=== PATIENT | male | born 1950 | race Caucasian/White ===

== ENCOUNTER 2019-06-12 00:21 | Day surgery (SDC) | payer MEDICARE | END 2019-06-12 12:00 | disposition home or self-care (01) | LOC: WOUND 00:21 | DX: E11.621 Type 2 diabetes mellitus with foot ulcer (principal); E11.40 Type 2 diabetes mellitus with diabetic neuropathy, unspecified; L97.519 Non-pressure chronic ulcer of other part of right foot with unspecified severity; I10 Essential (primary) hypertension; E11.59 Type 2 diabetes mellitus with other circulatory complications | CPT/HCPCS: G0463 ==

== ENCOUNTER 2019-06-19 00:21 | Day surgery (SDC) | payer MEDICARE | END 2019-06-19 22:48 | disposition home or self-care (01) | LOC: WOUND 00:21 | DX: E11.621 Type 2 diabetes mellitus with foot ulcer (principal); L97.511 Non-pressure chronic ulcer of other part of right foot limited to breakdown of skin; E11.59 Type 2 diabetes mellitus with other circulatory complications; G47.30 Sleep apnea, unspecified; E11.40 Type 2 diabetes mellitus with diabetic neuropathy, unspecified; M10.9 Gout, unspecified ==

== ENCOUNTER 2019-06-26 01:29 | Day surgery (SDC) | payer MEDICARE | END 2019-06-26 22:35 | disposition home or self-care (01) | LOC: WOUND 01:29 | DX: E11.621 Type 2 diabetes mellitus with foot ulcer (principal); E11.59 Type 2 diabetes mellitus with other circulatory complications; E11.40 Type 2 diabetes mellitus with diabetic neuropathy, unspecified; I10 Essential (primary) hypertension; L97.519 Non-pressure chronic ulcer of other part of right foot with unspecified severity ==

== ENCOUNTER 2019-07-03 00:42 | Day surgery (SDC) | payer MEDICARE | END 2019-07-03 22:37 | disposition home or self-care (01) | LOC: WOUND 00:42 | DX: E11.621 Type 2 diabetes mellitus with foot ulcer (principal); L97.512 Non-pressure chronic ulcer of other part of right foot with fat layer exposed; L97.519 Non-pressure chronic ulcer of other part of right foot with unspecified severity; E11.40 Type 2 diabetes mellitus with diabetic neuropathy, unspecified; I10 Essential (primary) hypertension ==

== ENCOUNTER 2019-07-10 00:12 | Day surgery (SDC) | payer MEDICARE | END 2019-07-10 23:02 | disposition home or self-care (01) | LOC: WOUND 00:12 | DX: E11.621 Type 2 diabetes mellitus with foot ulcer (principal); L97.519 Non-pressure chronic ulcer of other part of right foot with unspecified severity; E11.59 Type 2 diabetes mellitus with other circulatory complications; I10 Essential (primary) hypertension; G47.30 Sleep apnea, unspecified; M10.9 Gout, unspecified; E11.40 Type 2 diabetes mellitus with diabetic neuropathy, unspecified ==

== ENCOUNTER 2019-07-17 01:16 | Day surgery (SDC) | payer MEDICARE | END 2019-07-17 22:47 | disposition home or self-care (01) | LOC: WOUND 01:16 | DX: E11.621 Type 2 diabetes mellitus with foot ulcer (principal); L97.519 Non-pressure chronic ulcer of other part of right foot with unspecified severity; E11.59 Type 2 diabetes mellitus with other circulatory complications; I10 Essential (primary) hypertension; E11.40 Type 2 diabetes mellitus with diabetic neuropathy, unspecified ==

== ENCOUNTER 2019-07-24 00:14 | Day surgery (SDC) | payer MEDICARE | END 2019-07-24 22:37 | disposition home or self-care (01) | LOC: WOUND 00:14 | DX: E11.621 Type 2 diabetes mellitus with foot ulcer (principal); L97.412 Non-pressure chronic ulcer of right heel and midfoot with fat layer exposed; E11.40 Type 2 diabetes mellitus with diabetic neuropathy, unspecified; E11.59 Type 2 diabetes mellitus with other circulatory complications; I10 Essential (primary) hypertension; G47.30 Sleep apnea, unspecified; M10.9 Gout, unspecified ==

== ENCOUNTER 2019-07-31 00:12 | Day surgery (SDC) | payer MEDICARE | END 2019-07-31 22:55 | disposition home or self-care (01) | LOC: WOUND 00:12 | DX: E11.621 Type 2 diabetes mellitus with foot ulcer (principal); L97.512 Non-pressure chronic ulcer of other part of right foot with fat layer exposed; I10 Essential (primary) hypertension; G47.30 Sleep apnea, unspecified; M10.9 Gout, unspecified; E11.40 Type 2 diabetes mellitus with diabetic neuropathy, unspecified; E11.59 Type 2 diabetes mellitus with other circulatory complications ==

== ENCOUNTER 2019-08-07 00:25 | Day surgery (SDC) | payer MEDICARE | END 2019-08-07 22:36 | disposition home or self-care (01) | LOC: WOUND 00:25 | DX: E11.621 Type 2 diabetes mellitus with foot ulcer (principal); L97.512 Non-pressure chronic ulcer of other part of right foot with fat layer exposed; E11.59 Type 2 diabetes mellitus with other circulatory complications; E11.40 Type 2 diabetes mellitus with diabetic neuropathy, unspecified; I10 Essential (primary) hypertension ==

== ENCOUNTER 2019-08-14 01:10 | Day surgery (SDC) | payer MEDICARE | END 2019-08-14 22:40 | disposition home or self-care (01) | LOC: WOUND 01:10 | DX: E11.621 Type 2 diabetes mellitus with foot ulcer (principal); L97.512 Non-pressure chronic ulcer of other part of right foot with fat layer exposed; E11.59 Type 2 diabetes mellitus with other circulatory complications; E11.40 Type 2 diabetes mellitus with diabetic neuropathy, unspecified; I10 Essential (primary) hypertension; G47.30 Sleep apnea, unspecified; M10.9 Gout, unspecified | CPT/HCPCS: G0463 ==

== ENCOUNTER 2019-08-23 00:22 | Day surgery (SDC) | payer MEDICARE | END 2019-08-23 22:40 | disposition home or self-care (01) | LOC: WOUND 00:22 | DX: E11.621 Type 2 diabetes mellitus with foot ulcer (principal); L97.512 Non-pressure chronic ulcer of other part of right foot with fat layer exposed; E11.59 Type 2 diabetes mellitus with other circulatory complications; E11.40 Type 2 diabetes mellitus with diabetic neuropathy, unspecified; I10 Essential (primary) hypertension | CPT/HCPCS: G0463 ==

== ENCOUNTER 2019-09-04 00:37 | Day surgery (SDC) | payer MEDICARE | END 2019-09-04 22:35 | disposition home or self-care (01) | LOC: WOUND 00:37 | DX: E11.621 Type 2 diabetes mellitus with foot ulcer (principal); L97.512 Non-pressure chronic ulcer of other part of right foot with fat layer exposed; S91.104A Unspecified open wound of right lesser toe(s) without damage to nail, initial encounter; E11.59 Type 2 diabetes mellitus with other circulatory complications; E11.40 Type 2 diabetes mellitus with diabetic neuropathy, unspecified; I10 Essential (primary) hypertension ==

== ENCOUNTER 2021-01-20 04:01 | Day surgery (SDC) | payer MEDICARE ==
[~2021-01-20 04:01] MED LIST: ALLOPURINOL100 M1 PO; ASPI81CH PO; ATOR10 PO; Acetaminophen650 M1 PO; CARVEDILOL PO; CEFP200 PO; CYCL10 PO; FUROSEMIDE40 MG PO; GLIMEPIRIDE2 M2 PO; HYDRA25 PO; LIDOCAINE1 EAC1 TOP; MELATONIN10 M3 PO; METFORMIN HCL1000 M8 PO; METO2.5 PO; NEURONTIN300 MG PO; Norco 10-325 T1 EACH PO; ONDA4ODT MM; PANTOPRAZOLE SO40 M2 PO; Prinivil10 MG PO; SITA50T2 PO; VERAPAMIL PO
== END 2021-01-20 12:00 | disposition home or self-care (01) ==
LOC: WOUND 04:01
DX: E11.622 Type 2 diabetes mellitus with other skin ulcer (principal); L97.822 Non-pressure chronic ulcer of other part of left lower leg with fat layer exposed; L89.322 Pressure ulcer of left buttock, stage 2; L03.115 Cellulitis of right lower limb; I87.2 Venous insufficiency (chronic) (peripheral); E11.51 Type 2 diabetes mellitus with diabetic peripheral angiopathy without gangrene; S81.802A Unspecified open wound, left lower leg, initial encounter; X58.XXXA Exposure to other specified factors, initial encounter; I10 Essential (primary) hypertension; E11.40 Type 2 diabetes mellitus with diabetic neuropathy, unspecified; G47.30 Sleep apnea, unspecified
CPT/HCPCS: A9270; G0463

== ENCOUNTER 2021-01-27 06:22 | Day surgery (SDC) | payer MEDICARE | END 2021-01-27 22:49 | disposition home or self-care (01) | LOC: WOUND 06:22 | DX: L03.115 Cellulitis of right lower limb (principal); I87.2 Venous insufficiency (chronic) (peripheral); E11.51 Type 2 diabetes mellitus with diabetic peripheral angiopathy without gangrene; S81.802A Unspecified open wound, left lower leg, initial encounter; X58.XXXA Exposure to other specified factors, initial encounter; I10 Essential (primary) hypertension; G47.30 Sleep apnea, unspecified; E11.40 Type 2 diabetes mellitus with diabetic neuropathy, unspecified | CPT/HCPCS: G0463 ==

== ENCOUNTER 2021-01-29 01:33 | Day surgery (SDC) | payer MEDICARE | END 2021-01-29 22:59 | disposition home or self-care (01) | LOC: WOUND 01:33 | DX: S81.802A Unspecified open wound, left lower leg, initial encounter (principal); X58.XXXA Exposure to other specified factors, initial encounter; L03.115 Cellulitis of right lower limb; I87.2 Venous insufficiency (chronic) (peripheral); I73.9 Peripheral vascular disease, unspecified | CPT/HCPCS: G0463 ==

== ENCOUNTER 2021-01-31 05:36 | Day surgery (SDC) | payer MEDICARE | END 2021-01-31 23:32 | disposition home or self-care (01) | LOC: WOUND 05:36 | DX: L97.825 Non-pressure chronic ulcer of other part of left lower leg with muscle involvement without evidence of necrosis (principal); L89.151 Pressure ulcer of sacral region, stage 1; L03.115 Cellulitis of right lower limb; I87.2 Venous insufficiency (chronic) (peripheral); I73.9 Peripheral vascular disease, unspecified | CPT/HCPCS: G0463 ==

== ENCOUNTER 2021-02-03 06:15 | Day surgery (SDC) | payer MEDICARE | END 2021-02-03 23:08 | disposition home or self-care (01) | LOC: WOUND 06:15 | DX: E11.622 Type 2 diabetes mellitus with other skin ulcer (principal); L97.825 Non-pressure chronic ulcer of other part of left lower leg with muscle involvement without evidence of necrosis; L89.322 Pressure ulcer of left buttock, stage 2; L03.115 Cellulitis of right lower limb; L89.151 Pressure ulcer of sacral region, stage 1; I87.2 Venous insufficiency (chronic) (peripheral); E11.51 Type 2 diabetes mellitus with diabetic peripheral angiopathy without gangrene; I10 Essential (primary) hypertension; E11.40 Type 2 diabetes mellitus with diabetic neuropathy, unspecified | CPT/HCPCS: A9270; G0463 ==

== ENCOUNTER 2021-02-07 05:37 | Day surgery (SDC) | payer MEDICARE | END 2021-02-07 23:36 | disposition home or self-care (01) | LOC: WOUND 05:37 | DX: L03.115 Cellulitis of right lower limb (principal); L97.825 Non-pressure chronic ulcer of other part of left lower leg with muscle involvement without evidence of necrosis; L89.151 Pressure ulcer of sacral region, stage 1; I87.2 Venous insufficiency (chronic) (peripheral); I73.9 Peripheral vascular disease, unspecified | CPT/HCPCS: G0463 ==

== ENCOUNTER 2021-02-10 05:35 | Day surgery (SDC) | payer MEDICARE | END 2021-02-10 23:21 | disposition home or self-care (01) | LOC: WOUND 05:35 | DX: L97.825 Non-pressure chronic ulcer of other part of left lower leg with muscle involvement without evidence of necrosis (principal); L03.115 Cellulitis of right lower limb; L89.151 Pressure ulcer of sacral region, stage 1; I87.2 Venous insufficiency (chronic) (peripheral); I73.9 Peripheral vascular disease, unspecified | CPT/HCPCS: G0463 ==

== ENCOUNTER 2021-02-12 04:50 | Day surgery (SDC) | payer MEDICARE | END 2021-02-12 22:56 | disposition home or self-care (01) | LOC: WOUND 04:50 | DX: L97.825 Non-pressure chronic ulcer of other part of left lower leg with muscle involvement without evidence of necrosis (principal); L03.115 Cellulitis of right lower limb; L89.151 Pressure ulcer of sacral region, stage 1; I87.2 Venous insufficiency (chronic) (peripheral) | CPT/HCPCS: G0463 ==

== ENCOUNTER 2021-02-14 04:35 | Day surgery (SDC) | payer MEDICARE | END 2021-02-14 23:11 | disposition home or self-care (01) | LOC: WOUND 04:35 | DX: E11.622 Type 2 diabetes mellitus with other skin ulcer (principal); L97.825 Non-pressure chronic ulcer of other part of left lower leg with muscle involvement without evidence of necrosis; L89.151 Pressure ulcer of sacral region, stage 1; L03.115 Cellulitis of right lower limb; I87.2 Venous insufficiency (chronic) (peripheral); I10 Essential (primary) hypertension; E11.51 Type 2 diabetes mellitus with diabetic peripheral angiopathy without gangrene; E11.40 Type 2 diabetes mellitus with diabetic neuropathy, unspecified ==

== ENCOUNTER 2021-02-17 01:49 | Day surgery (SDC) | payer MEDICARE | END 2021-02-17 23:00 | disposition home or self-care (01) | LOC: WOUND 01:49 | DX: L97.825 Non-pressure chronic ulcer of other part of left lower leg with muscle involvement without evidence of necrosis (principal); L89.151 Pressure ulcer of sacral region, stage 1; L03.115 Cellulitis of right lower limb; I87.2 Venous insufficiency (chronic) (peripheral); I10 Essential (primary) hypertension; E11.51 Type 2 diabetes mellitus with diabetic peripheral angiopathy without gangrene; E11.40 Type 2 diabetes mellitus with diabetic neuropathy, unspecified | CPT/HCPCS: A9270; G0463 ==

== ENCOUNTER 2021-02-19 03:22 | Day surgery (SDC) | payer MEDICARE | END 2021-02-19 23:24 | disposition home or self-care (01) | LOC: WOUND 03:22 | DX: L97.825 Non-pressure chronic ulcer of other part of left lower leg with muscle involvement without evidence of necrosis (principal); L89.151 Pressure ulcer of sacral region, stage 1; L03.115 Cellulitis of right lower limb; I87.2 Venous insufficiency (chronic) (peripheral); I73.9 Peripheral vascular disease, unspecified | CPT/HCPCS: G0463 ==

== ENCOUNTER 2021-02-21 05:22 | Day surgery (SDC) | payer MEDICARE | END 2021-02-21 22:51 | disposition home or self-care (01) | LOC: WOUND 05:22 | DX: S81.802A Unspecified open wound, left lower leg, initial encounter (principal); X58.XXXA Exposure to other specified factors, initial encounter | CPT/HCPCS: G0463 ==

== ENCOUNTER 2021-02-24 03:41 | Day surgery (SDC) | payer MEDICARE | END 2021-02-24 23:03 | disposition home or self-care (01) | LOC: WOUND 03:41 | DX: L97.825 Non-pressure chronic ulcer of other part of left lower leg with muscle involvement without evidence of necrosis (principal); L89.151 Pressure ulcer of sacral region, stage 1; L03.115 Cellulitis of right lower limb; I87.2 Venous insufficiency (chronic) (peripheral); I73.9 Peripheral vascular disease, unspecified | CPT/HCPCS: G0463 ==

== ENCOUNTER 2021-02-26 05:11 | Day surgery (SDC) | payer MEDICARE | END 2021-02-26 23:13 | disposition home or self-care (01) | LOC: WOUND 05:11 | DX: L97.825 Non-pressure chronic ulcer of other part of left lower leg with muscle involvement without evidence of necrosis (principal); I73.9 Peripheral vascular disease, unspecified | CPT/HCPCS: G0463 ==

== ENCOUNTER 2021-03-03 04:16 | Day surgery (SDC) | payer MEDICARE | END 2021-03-03 22:36 | disposition home or self-care (01) | LOC: WOUND 04:16 | DX: L97.825 Non-pressure chronic ulcer of other part of left lower leg with muscle involvement without evidence of necrosis (principal); L89.151 Pressure ulcer of sacral region, stage 1; L03.115 Cellulitis of right lower limb; I87.2 Venous insufficiency (chronic) (peripheral); E11.51 Type 2 diabetes mellitus with diabetic peripheral angiopathy without gangrene; I10 Essential (primary) hypertension; E11.40 Type 2 diabetes mellitus with diabetic neuropathy, unspecified; G47.30 Sleep apnea, unspecified | CPT/HCPCS: A9270 ==

== ENCOUNTER 2021-03-07 01:38 | Day surgery (SDC) | payer MEDICARE | END 2021-03-07 23:16 | disposition home or self-care (01) | LOC: WOUND 01:38 | DX: L97.825 Non-pressure chronic ulcer of other part of left lower leg with muscle involvement without evidence of necrosis (principal); L89.151 Pressure ulcer of sacral region, stage 1; L03.115 Cellulitis of right lower limb; I87.2 Venous insufficiency (chronic) (peripheral); I73.9 Peripheral vascular disease, unspecified | CPT/HCPCS: G0463 ==

== ENCOUNTER 2021-03-10 04:20 | Day surgery (SDC) | payer MEDICARE | END 2021-03-10 23:06 | disposition home or self-care (01) | LOC: WOUND 04:20 | DX: L97.825 Non-pressure chronic ulcer of other part of left lower leg with muscle involvement without evidence of necrosis (principal); L89.151 Pressure ulcer of sacral region, stage 1; L03.115 Cellulitis of right lower limb; I87.2 Venous insufficiency (chronic) (peripheral); I73.9 Peripheral vascular disease, unspecified; I10 Essential (primary) hypertension | CPT/HCPCS: A9270 ==

== ENCOUNTER 2021-03-17 04:37 | Day surgery (SDC) | payer MEDICARE | END 2021-03-17 22:46 | disposition home or self-care (01) | LOC: WOUND 04:37 | DX: L97.825 Non-pressure chronic ulcer of other part of left lower leg with muscle involvement without evidence of necrosis (principal); L89.151 Pressure ulcer of sacral region, stage 1; L03.115 Cellulitis of right lower limb; E11.51 Type 2 diabetes mellitus with diabetic peripheral angiopathy without gangrene; E11.40 Type 2 diabetes mellitus with diabetic neuropathy, unspecified; I10 Essential (primary) hypertension; I87.2 Venous insufficiency (chronic) (peripheral) | CPT/HCPCS: A9270 ==

== ENCOUNTER 2021-03-24 03:52 | Day surgery (SDC) | payer MEDICARE | END 2021-03-24 22:39 | disposition home or self-care (01) | LOC: WOUND 03:52 | DX: L97.825 Non-pressure chronic ulcer of other part of left lower leg with muscle involvement without evidence of necrosis (principal); L89.151 Pressure ulcer of sacral region, stage 1; L03.115 Cellulitis of right lower limb; I87.2 Venous insufficiency (chronic) (peripheral); I10 Essential (primary) hypertension; E11.51 Type 2 diabetes mellitus with diabetic peripheral angiopathy without gangrene | CPT/HCPCS: A9270; G0463 ==

== ENCOUNTER 2021-04-07 01:14 | Day surgery (SDC) | payer MEDICARE | END 2021-04-07 23:16 | disposition home or self-care (01) | LOC: WOUND 01:14 | DX: L97.825 Non-pressure chronic ulcer of other part of left lower leg with muscle involvement without evidence of necrosis (principal); L03.115 Cellulitis of right lower limb; L89.151 Pressure ulcer of sacral region, stage 1; I87.2 Venous insufficiency (chronic) (peripheral); I73.9 Peripheral vascular disease, unspecified | CPT/HCPCS: G0463 ==

== ENCOUNTER → 2022-02-18 | Outpatient (CLI) | payer MEDICARE ==
[2022-02-18 17:34] LABS: Creatinine Urine 44.8 mg/dL (27.00-270.00); Protein, Urine Quantitative 6.6 mg/dL (0.0-11.9)
[2022-02-18 17:37] LABS: Microalbumin, Urine Quant. 11.8 mg/L (0.000-20.000)
== END | disposition home or self-care (01) ==
LOC: LAB 14:20 → LAB SHORT 14:20
PROVIDERS: Internal Medicine Nephrology
DX: N18.30 Chronic kidney disease, stage 3 unspecified (principal); D63.1 Anemia in chronic kidney disease; N25.81 Secondary hyperparathyroidism of renal origin; E78.00 Pure hypercholesterolemia, unspecified; E55.9 Vitamin D deficiency, unspecified; D50.9 Iron deficiency anemia, unspecified; D51.8 Other vitamin B12 deficiency anemias; D52.8 Other folate deficiency anemias; R76.9 Abnormal immunological finding in serum, unspecified; R94.5 Abnormal results of liver function studies; R94.6 Abnormal results of thyroid function studies
CPT/HCPCS: 81050; 82043; 82570; 84156

== ENCOUNTER 2022-06-10 07:46 | Day surgery (SDC) | payer MEDICARE ==
[~2022-06-10] VITALS: Ht 177.8 cm; Wt 103.0 kg
[2022-06-10] MEDS ORDERED: METO100 PO (08:44)
[2022-06-10] MEDS ORDERED: METO25 PO (08:44)
--- NOTE | 2022-06-10 12:40 | NUR ---
06/10/22 Robbie Mosquera PT DID NOT LEAVE WITH WRITTEN DISCHARGE INSTRUCTIONS. 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 INSTRUCTIONS WERE PROVIDED A SECOND TIME VERBALLY OVER THE PHONE, PER PT REQUEST.
== END 2022-06-10 10:19 | disposition home or self-care (01) ==
LOC: ORSCSDS 07:46
PROVIDERS: Ophthalmology
PROC: 08DJ3ZZ Extraction of Right Lens, Percutaneous Approach (ICD-10-PCS; principal; 2022-06-10 09:00)
DX: E11.36 Type 2 diabetes mellitus with diabetic cataract (principal); E11.3292 Type 2 diabetes mellitus with mild nonproliferative diabetic retinopathy without macular edema, left eye; H25.13 Age-related nuclear cataract, bilateral; I10 Essential (primary) hypertension; E78.00 Pure hypercholesterolemia, unspecified; G47.33 Obstructive sleep apnea (adult) (pediatric); I25.2 Old myocardial infarction; I25.10 Atherosclerotic heart disease of native coronary artery without angina pectoris; Z79.82 Long term (current) use of aspirin; Z79.85 Long-term (current) use of injectable non-insulin antidiabetic drugs; Z79.899 Other long term (current) drug therapy
CPT/HCPCS: 82947; J2001; J2250; J3010; J3301; J7040; V2632

== ENCOUNTER 2022-06-24 08:17 | Day surgery (SDC) | payer MEDICARE ==
[~2022-06-24] VITALS: Ht 177.8 cm; Wt 100.1 kg
[~2022-06-24 08:17] MED LIST changes: +METO100 PO; +METO25 PO
[2022-06-24] MEDS ORDERED: JARDIANCE25 MG PO (08:38)
--- NOTE | 2022-06-24 08:46 | NUR ---
06/24/22 0846 Flores Hopkins AT 0836 PLEDGET AT 0838
== END 2022-06-24 10:31 | disposition home or self-care (01) ==
LOC: ORSCSDS 08:17
PROVIDERS: Ophthalmology
PROC: 08RK3JZ Replacement of Left Lens with Synthetic Substitute, Percutaneous Approach (ICD-10-PCS; principal; 2022-06-24 09:30)
DX: H25.12 Age-related nuclear cataract, left eye (principal); I25.10 Atherosclerotic heart disease of native coronary artery without angina pectoris; G47.33 Obstructive sleep apnea (adult) (pediatric); I12.9 Hypertensive chronic kidney disease with stage 1 through stage 4 chronic kidney disease, or unspecified chronic kidney disease; E11.22 Type 2 diabetes mellitus with diabetic chronic kidney disease; N18.30 Chronic kidney disease, stage 3 unspecified; Z79.84 Long term (current) use of oral hypoglycemic drugs; Z79.82 Long term (current) use of aspirin
CPT/HCPCS: 82947; J2001; J2250; J3010; J3301; J7040; V2632

== ENCOUNTER 2022-12-24 20:27 | Emergency (ER) | payer MEDICARE ==
[~2022-12-24] VITALS: Ht 177.8 cm; Wt 99.8 kg
[~2022-12-24 20:27] MED LIST changes: +JARDIANCE25 MG PO
[2022-12-24 21:08] LABS: BASOPHILS ABSOLUTE AUTO 0.06 K/mm3 (0.00-0.23); BASOPHILS PERCENT AUTO 1 % (0-2); EOSINOPHILS ABSOLUTE AUTO 0.62 K/mm3 (0.00-0.68); EOSINOPHILS PERCENT AUTO 5 % (0-6); Hematocrit 37.5 % (37.0-53.0); Hemoglobin 11.9 g/dL (13.5-17.5); IMMATURE GRAN ABSOLUTE AUTO 0.07 K/mm3 (0.00-0.10); IMMATURE GRAN PERCENT AUTO 1 % (0-1); LYMPHOCYTES ABSOLUTE AUTO 1.62 K/mm3 (0.84-5.20); LYMPHOCYTES PERCENT AUTO 13 % (21-46); MONOCYTES PERCENT AUTO 8 % (4-13); Mean Corpuscular HGB 29.3 pg (26.0-34.0); Mean Corpuscular HGB Conc 31.7 g/dL (31.5-36.5); Mean Corpuscular Volume 92 fL (80-100); Mean Platelet Volume 10.4 fL (9.1-12.4); NEUTROPHILS ABSOLUTE AUTO 8.92 K/mm3 (1.96-9.15); NEUTROPHILS PERCENT AUTO 73 % (41-73); Platelet Count 274 K/mm3 (150-400); RDW Coefficient Variation 15.3 % (11.7-14.2); RDW Standard Deviation 52.2 fL (35.1-46.3); Red Blood Cell Count 4.06 M/mm3 (4.30-5.90); White Blood Cell Count 12.29 K/mm3 (4.00-11.30)
[2022-12-24] MEDS ORDERED: CEPH500 PO (21:13)
[2022-12-24] MEDS ORDERED: ALLO300 PO (21:13)
[2022-12-24] MEDS ORDERED: ATOR10 PO (21:13)
[2022-12-24] MEDS ORDERED: CLIN150 PO (21:13)
[2022-12-24] MEDS ORDERED: ASPI81CH PO (21:13)
[2022-12-24] MEDS ORDERED: JARDIANCE25 MG PO (21:14)
[2022-12-24] MEDS ORDERED: ALLEGRA ALLERG180 MG PO (21:14)
[2022-12-24] MEDS ORDERED: FURO40 PO (21:14)
[2022-12-24] MEDS ORDERED: GABA300 PO (21:14)
[2022-12-24 21:15] VITALS: BP 128/54
[2022-12-24] MEDS ORDERED: METO100ER PO (21:15)
[2022-12-24] MEDS ORDERED: METF500C PO (21:15)
[2022-12-24] MEDS ORDERED: LISI5 PO (21:15)
[2022-12-24] MEDS ORDERED: GLIM2 PO (21:15)
[2022-12-24] MEDS ORDERED: MELATONIN5 M1 PO (21:15)
[2022-12-24] MEDS ORDERED: POTCHL20ER PO (21:16)
[2022-12-24] MEDS ORDERED: PANT20 PO (21:16)
[2022-12-24] MEDS ORDERED: SITA50T2 PO (21:16)
[2022-12-24 21:30] LABS: Albumin, Blood 3.3 g/dL (3.4-5.0); Albumin/Globulin Ratio 0.8 (0.8-1.8); Bilirubin, Total 0.3 mg/dL (0.1-1.0); Calcium, Blood 9.6 mg/dL (8.5-10.1); Creatinine, Blood 1.57 mg/dL (0.60-1.20); Globulin, Blood 4.4 g/dL (2.2-4.0); Potassium, Blood 4.5 mmol/L (3.5-5.5); Total Protein, Blood 7.7 g/dL (6.4-8.2)
== END 2022-12-24 22:42 | disposition home or self-care (01) ==
LOC: ER 20:27
PROVIDERS: Emergency Medicine
DX: I47.1 Supraventricular tachycardia (principal); L03.116 Cellulitis of left lower limb; E11.622 Type 2 diabetes mellitus with other skin ulcer; L98.491 Non-pressure chronic ulcer of skin of other sites limited to breakdown of skin; E11.65 Type 2 diabetes mellitus with hyperglycemia; I10 Essential (primary) hypertension; I25.10 Atherosclerotic heart disease of native coronary artery without angina pectoris; E78.00 Pure hypercholesterolemia, unspecified; K21.9 Gastro-esophageal reflux disease without esophagitis; Z88.8 Allergy status to other drugs, medicaments and biological substances; Z79.899 Other long term (current) drug therapy; Z79.84 Long term (current) use of oral hypoglycemic drugs
CPT/HCPCS: 71045; 80053; 84484; 85025; 92960; 93005; 93010; 99285-25; J0153; J7030

== ENCOUNTER 2022-12-30 01:23 | Day surgery (SDC) | payer MEDICARE ==
[~2022-12-30 01:23] MED LIST changes: +ALLEGRA ALLERG180 MG PO; +ALLO300 PO; +CEPH500 PO; +CLIN150 PO; +FURO40 PO; +GABA300 PO; +GLIM2 PO; +LISI5 PO; +MELATONIN5 M1 PO; +METF500C PO; +METO100ER PO; +PANT20 PO; +POTCHL20ER PO
== END 2022-12-30 22:46 | disposition home or self-care (01) ==
LOC: WOUND 01:23
DX: E11.622 Type 2 diabetes mellitus with other skin ulcer (principal); L97.822 Non-pressure chronic ulcer of other part of left lower leg with fat layer exposed; L03.116 Cellulitis of left lower limb; I10 Essential (primary) hypertension; M10.9 Gout, unspecified; E11.42 Type 2 diabetes mellitus with diabetic polyneuropathy; I87.2 Venous insufficiency (chronic) (peripheral); I73.9 Peripheral vascular disease, unspecified; G47.30 Sleep apnea, unspecified
CPT/HCPCS: A9270; G0463

== ENCOUNTER 2023-01-08 00:34 | Day surgery (SDC) | payer MEDICARE | END 2023-01-08 22:42 | disposition home or self-care (01) | LOC: WOUND 00:34 | DX: E11.622 Type 2 diabetes mellitus with other skin ulcer (principal); L97.822 Non-pressure chronic ulcer of other part of left lower leg with fat layer exposed; L03.116 Cellulitis of left lower limb; E11.51 Type 2 diabetes mellitus with diabetic peripheral angiopathy without gangrene; I87.2 Venous insufficiency (chronic) (peripheral); E11.42 Type 2 diabetes mellitus with diabetic polyneuropathy | CPT/HCPCS: A9270; G0463 ==

== ENCOUNTER 2023-01-15 02:50 | Day surgery (SDC) | payer MEDICARE | END 2023-01-15 22:40 | disposition home or self-care (01) | LOC: WOUND 02:50 | DX: E11.622 Type 2 diabetes mellitus with other skin ulcer (principal); L97.822 Non-pressure chronic ulcer of other part of left lower leg with fat layer exposed; L03.116 Cellulitis of left lower limb; I10 Essential (primary) hypertension; M1A.9XX1 Chronic gout, unspecified, with tophus (tophi); G47.30 Sleep apnea, unspecified; I87.2 Venous insufficiency (chronic) (peripheral); I73.9 Peripheral vascular disease, unspecified; E11.42 Type 2 diabetes mellitus with diabetic polyneuropathy | CPT/HCPCS: A9270 ==

== ENCOUNTER 2023-01-27 02:41 | Day surgery (SDC) | payer MEDICARE | END 2023-01-27 22:38 | disposition home or self-care (01) | LOC: WOUND 02:41 | DX: E11.622 Type 2 diabetes mellitus with other skin ulcer (principal); L97.822 Non-pressure chronic ulcer of other part of left lower leg with fat layer exposed; L03.116 Cellulitis of left lower limb; I87.2 Venous insufficiency (chronic) (peripheral); E11.42 Type 2 diabetes mellitus with diabetic polyneuropathy; E11.51 Type 2 diabetes mellitus with diabetic peripheral angiopathy without gangrene | CPT/HCPCS: A9270; G0463 ==

== ENCOUNTER 2023-02-04 05:19 | Day surgery (SDC) | payer MEDICARE | END 2023-02-04 22:36 | disposition home or self-care (01) | LOC: WOUND 05:19 | DX: E11.622 Type 2 diabetes mellitus with other skin ulcer (principal); L03.116 Cellulitis of left lower limb; I87.2 Venous insufficiency (chronic) (peripheral); E11.51 Type 2 diabetes mellitus with diabetic peripheral angiopathy without gangrene; E11.42 Type 2 diabetes mellitus with diabetic polyneuropathy | CPT/HCPCS: A9270 ==

== ENCOUNTER 2023-02-11 05:19 | Day surgery (SDC) | payer MEDICARE | END 2023-02-11 22:45 | disposition home or self-care (01) | LOC: WOUND 05:19 | DX: E11.622 Type 2 diabetes mellitus with other skin ulcer (principal); L97.822 Non-pressure chronic ulcer of other part of left lower leg with fat layer exposed; L03.116 Cellulitis of left lower limb; I87.2 Venous insufficiency (chronic) (peripheral); E11.51 Type 2 diabetes mellitus with diabetic peripheral angiopathy without gangrene; E11.42 Type 2 diabetes mellitus with diabetic polyneuropathy; I10 Essential (primary) hypertension; G47.30 Sleep apnea, unspecified | CPT/HCPCS: A9270 ==

== ENCOUNTER 2023-02-18 02:02 | Day surgery (SDC) | payer MEDICARE | END 2023-02-18 22:48 | disposition home or self-care (01) | LOC: WOUND 02:02 | DX: E11.622 Type 2 diabetes mellitus with other skin ulcer (principal); L98.499 Non-pressure chronic ulcer of skin of other sites with unspecified severity; L03.116 Cellulitis of left lower limb; I87.2 Venous insufficiency (chronic) (peripheral); E11.51 Type 2 diabetes mellitus with diabetic peripheral angiopathy without gangrene; E11.42 Type 2 diabetes mellitus with diabetic polyneuropathy | CPT/HCPCS: G0463 ==

== ENCOUNTER 2023-03-11 01:20 | Day surgery (SDC) | payer MEDICARE | END 2023-03-11 22:43 | disposition home or self-care (01) | LOC: WOUND 01:20 | DX: E11.622 Type 2 diabetes mellitus with other skin ulcer (principal); L97.822 Non-pressure chronic ulcer of other part of left lower leg with fat layer exposed; L03.116 Cellulitis of left lower limb; I87.2 Venous insufficiency (chronic) (peripheral); E11.51 Type 2 diabetes mellitus with diabetic peripheral angiopathy without gangrene; E11.42 Type 2 diabetes mellitus with diabetic polyneuropathy; I10 Essential (primary) hypertension; G47.30 Sleep apnea, unspecified | CPT/HCPCS: G0463 ==

== ENCOUNTER 2023-03-17 04:03 | Day surgery (SDC) | payer MEDICARE | END 2023-03-17 22:46 | disposition home or self-care (01) | LOC: WOUND 04:03 | DX: E11.622 Type 2 diabetes mellitus with other skin ulcer (principal); L97.822 Non-pressure chronic ulcer of other part of left lower leg with fat layer exposed; L03.116 Cellulitis of left lower limb; I10 Essential (primary) hypertension; M10.9 Gout, unspecified; I87.2 Venous insufficiency (chronic) (peripheral); E11.51 Type 2 diabetes mellitus with diabetic peripheral angiopathy without gangrene; E11.42 Type 2 diabetes mellitus with diabetic polyneuropathy | CPT/HCPCS: G0463 ==

== ENCOUNTER 2023-03-24 08:00 | Day surgery (SDC) | payer MEDICARE | END 2023-03-24 23:59 | disposition home or self-care (01) | LOC: WOUND 08:00 | DX: E11.622 Type 2 diabetes mellitus with other skin ulcer (principal); L97.822 Non-pressure chronic ulcer of other part of left lower leg with fat layer exposed; L03.116 Cellulitis of left lower limb; I87.2 Venous insufficiency (chronic) (peripheral); E11.51 Type 2 diabetes mellitus with diabetic peripheral angiopathy without gangrene; E11.42 Type 2 diabetes mellitus with diabetic polyneuropathy; I10 Essential (primary) hypertension; G47.30 Sleep apnea, unspecified | CPT/HCPCS: G0463 ==

== ENCOUNTER 2023-04-07 03:02 | Day surgery (SDC) | payer MEDICARE | END 2023-04-07 22:36 | disposition home or self-care (01) | LOC: WOUND 03:02 | DX: E11.622 Type 2 diabetes mellitus with other skin ulcer (principal); L97.822 Non-pressure chronic ulcer of other part of left lower leg with fat layer exposed; L03.116 Cellulitis of left lower limb; I87.2 Venous insufficiency (chronic) (peripheral); E11.51 Type 2 diabetes mellitus with diabetic peripheral angiopathy without gangrene; E11.42 Type 2 diabetes mellitus with diabetic polyneuropathy; I10 Essential (primary) hypertension; G47.30 Sleep apnea, unspecified | CPT/HCPCS: G0463 ==

== ENCOUNTER 2023-04-14 01:39 | Day surgery (SDC) | payer MEDICARE | END 2023-04-14 22:42 | disposition home or self-care (01) | LOC: WOUND 01:39 | DX: E11.622 Type 2 diabetes mellitus with other skin ulcer (principal); L03.116 Cellulitis of left lower limb; I87.2 Venous insufficiency (chronic) (peripheral); E11.51 Type 2 diabetes mellitus with diabetic peripheral angiopathy without gangrene; E11.42 Type 2 diabetes mellitus with diabetic polyneuropathy | CPT/HCPCS: G0463 ==

== ENCOUNTER → 2023-04-19 | Outpatient (CLI) | payer MEDICARE | LOC: LAB SHORT 11:47 → LAB 11:47 | DX: D09.8 Carcinoma in situ of other specified sites (principal) | CPT/HCPCS: 88305 ==

== ENCOUNTER 2023-04-21 02:46 | Day surgery (SDC) | payer MEDICARE | END 2023-04-21 23:14 | disposition home or self-care (01) | LOC: WOUND 02:46 | DX: E11.622 Type 2 diabetes mellitus with other skin ulcer (principal); L97.822 Non-pressure chronic ulcer of other part of left lower leg with fat layer exposed; L03.116 Cellulitis of left lower limb; I87.2 Venous insufficiency (chronic) (peripheral); E11.51 Type 2 diabetes mellitus with diabetic peripheral angiopathy without gangrene; E11.42 Type 2 diabetes mellitus with diabetic polyneuropathy; I10 Essential (primary) hypertension; M10.9 Gout, unspecified | CPT/HCPCS: G0463 ==

== ENCOUNTER 2023-04-28 02:49 | Day surgery (SDC) | payer MEDICARE | END 2023-04-28 22:50 | disposition home or self-care (01) | LOC: WOUND 02:49 | DX: E11.622 Type 2 diabetes mellitus with other skin ulcer (principal); L97.822 Non-pressure chronic ulcer of other part of left lower leg with fat layer exposed; L03.116 Cellulitis of left lower limb; I87.2 Venous insufficiency (chronic) (peripheral); E11.51 Type 2 diabetes mellitus with diabetic peripheral angiopathy without gangrene; E11.42 Type 2 diabetes mellitus with diabetic polyneuropathy | CPT/HCPCS: G0463 ==

== ENCOUNTER 2023-05-05 02:52 | Day surgery (SDC) | payer MEDICARE | END 2023-05-05 23:07 | disposition home or self-care (01) | LOC: WOUND 02:52 | DX: E11.622 Type 2 diabetes mellitus with other skin ulcer (principal); L03.116 Cellulitis of left lower limb; I87.2 Venous insufficiency (chronic) (peripheral); L97.822 Non-pressure chronic ulcer of other part of left lower leg with fat layer exposed; E11.51 Type 2 diabetes mellitus with diabetic peripheral angiopathy without gangrene; E11.42 Type 2 diabetes mellitus with diabetic polyneuropathy | CPT/HCPCS: G0463 ==

== ENCOUNTER 2023-05-12 01:26 | Day surgery (SDC) | payer MEDICARE | END 2023-05-12 23:18 | disposition home or self-care (01) | LOC: WOUND 01:26 | DX: Z09 Encounter for follow-up examination after completed treatment for conditions other than malignant neoplasm (principal); I10 Essential (primary) hypertension; M10.9 Gout, unspecified; E11.42 Type 2 diabetes mellitus with diabetic polyneuropathy | CPT/HCPCS: G0463 ==

== ENCOUNTER → 2023-07-14 | Outpatient (CLI) | payer MEDICARE | LOC: LAB 16:50 → LAB SHORT 16:50 | DX: L02.91 Cutaneous abscess, unspecified (principal) | CPT/HCPCS: 87070; 87205 ==

== ENCOUNTER → 2023-08-04 | Outpatient (CLI) | payer MEDICARE | LOC: LAB 11:38 → LAB SHORT 11:38 | DX: D48.5 Neoplasm of uncertain behavior of skin (principal) ==